=== PATIENT | female | born 1950 | race Caucasian/White ===

== ENCOUNTER 2018-03-13 18:16 | Inpatient (IN) | payer MEDICARE ==
[2018-03-13 19:06] LABS: Hemoglobin 13.8 g/dL (12.0-16.0); Mean Corpuscular HGB CONC 32.5 g/dL (32.0-36.0); Mean Corpuscular Hemoglobin 31.4 pg (27.0-31.0); Mean Corpuscular Volume 96.5 fL (78.0-98.0); Mean Platelet Volume 9.4 fL (7.4-10.4); Platelet Count 339 thou/uL (130-400); Red Blood Cell (RBC) Count 4.41 mill/uL (4.20-5.40); White Blood Cell (WBC) Count 12.1 thou/uL (4.8-10.8)
[2018-03-13] MEDS ORDERED: Promethazine HCl 25 MG/ML VIAL ONE (19:07)
[2018-03-13 19:20] LABS: ALT (SGPT) 10 U/L (8-55); AST (SGOT) 19 U/L (5-34); Albumin 3.9 g/dL (3.4-4.8); Alkaline Phosphatase 77 U/L (40-150); Anion Gap 13 mmol/L (10-20); BUN (Urea Nitrogen) 7 mg/dL (9.8-20.1); Bilirubin, Total 0.2 mg/dL (0.2-1.2); Calc. Creatinine Clearance 0 mL/min (70-130); Calcium 9.3 mg/dL (7.8-10.44); Carbon Dioxide 25 mmol/L (23-31); Chloride 103 mmol/L (98-107); Estimated GFR-MDRD 73; Globulin 3.2 g/dL (2.4-3.5); Glucose 179 mg/dL (80-115); Lipase 29 U/L (8-78); Potassium 4.1 mmol/L (3.5-5.1); Protein, Total 7.1 g/dL (6.0-8.3); Sodium 137 mmol/L (136-145)
[2018-03-13] MEDS ORDERED: Morphine 2 MG/ML SYRINGE ONE ×2 (19:20→22:18)
[2018-03-13 19:43] LABS: #Eosinphils 0.1 thou/uL (0.0-0.7); #Lymphocytes 1.6 thou/uL (1.20-3.40); #Monocytes 0.6 thou/uL (0.11-0.59); #Neutrophils 9.8 thou/uL (1.40-6.50); %Basophils 0.4 % (0.0-1.0); %Eosinophils 0.8 % (0.0-10.0); %Lymphocytes 13.3 % (21.0-51.0); %Monocytes 5.2 % (0.0-10.0); %Neutrophils 80.4 % (42.0-75.0); Anisocytosis SLIGHT = 6-15 cells (100X) (0-5/hpf); MDiff Complete? YES; PLT Morphology Comment Appears Adequate
[2018-03-13 20:10] LABS: Bilirubin Negative (Negative); Blood, Urine Negative (Negative); Clarity CLEAR (Clear); Glucose, Urine (Dipstick) Negative (Negative); Leukocyte Negative (Negative); Nitrite Negative (Negative); Protein, Urine (Dipstick) Negative (Neg-Trace); Specific Gravity, Urine 1.008 (1.002-1.036); Urobilinogen 0.2 mg/dL (0.2-1.0); pH, Urine 6.5 (5.0-9.0)
--- NOTE | 2018-03-13 21:05 | RAD ---
CHEST ONE VIEWS: 03/13/18 HISTORY: 67-year-old female with history of abdominal pain. COMPARISON: 12/06/17. FINDINGS: Stable increased markings noted bilaterally. Heart size is within normal limits. No confluent pneumon ia, no overt edema. No pleural effusion. IMPRESSION: Stable increased bronchovascular markings bilaterally. No evidence of pneumonia, acute edema, or othe r acute process. Atherosclerosis of the aorta. POS: [facility]
[2018-03-13] MEDS ORDERED: Ondansetron PF 4 MG/2 ML Vial IVP PRN (21:12)
[2018-03-13] MEDS ORDERED: Ondansetron ODT 4 MG TAB PO PRN (21:12)
[2018-03-13] MEDS ORDERED: Acetaminophen 325 MG TAB PO PRN (21:12)
[2018-03-13] MEDS ORDERED: Zolpidem Tartrate 5 MG TAB PO PRN (21:12)
[2018-03-13] MEDS ORDERED: Dextrose 50% Abboject 50 ML SYRINGE SLOW IVP PRN (21:18)
[2018-03-13] MEDS ORDERED: HumaLOG 300 UNITS/3 ML VIAL SC PRN ×2 (21:18)
[2018-03-13] MEDS ORDERED: Dextrose 5% in Water 1,000 ML IV PRN (21:18)
[2018-03-13] MEDS ORDERED: Piperacillin/Tazobactam 3.375 GM VIAL ONE (21:27)
[2018-03-13] MEDS: Vancomycin HCl 1 GM in Premix Bag 1 BAG IVPB SCH (23:47)
[2018-03-13 23:52] VITALS: BMI 29.7
[2018-03-14] MEDS: Sodium Chloride 0.9% 1,000 ML IV SCH ×3 (03:29→20:31)
[2018-03-14] MEDS: Piperacillin/Tazobactam 3.375 GM in Sodium Chloride 0.9% 100 ML IVPB SCH ×4 (03:30→21:04)
[2018-03-14] MEDS: HYDROcodone/Acetaminophen 7.5/325 mg Tablet PO PRN (03:30)
[2018-03-14 06:44] LABS: Anion Gap 12 mmol/L (10-20); BUN (Urea Nitrogen) 5 mg/dL (9.8-20.1); Calc. Creatinine Clearance 98 mL/min (70-130); Calcium 8.7 mg/dL (7.8-10.44); Carbon Dioxide 26 mmol/L (23-31); Chloride 109 mmol/L (98-107); Estimated GFR-MDRD Greater than 90; Glucose 87 mg/dL (80-115); Potassium 3.9 mmol/L (3.5-5.1); Sodium 143 mmol/L (136-145)
[2018-03-14 07:01] LABS: #Basophils 0.1 thou/uL (0.0-0.2); #Eosinphils 0.2 thou/uL (0.0-0.7); #Lymphocytes 3.5 thou/uL (1.20-3.40); #Monocytes 0.8 thou/uL (0.11-0.59); #Neutrophils 5.5 thou/uL (1.40-6.50); %Basophils 1.2 % (0.0-1.0); %Eosinophils 1.6 % (0.0-10.0); %Lymphocytes 34.6 % (21.0-51.0); %Monocytes 8.2 % (0.0-10.0); %Neutrophils 54.4 % (42.0-75.0); Anisocytosis SLIGHT = 6-15 cells (100X) (0-5/hpf); Hemoglobin 12.3 g/dL (12.0-16.0); MDiff Complete? YES; Mean Corpuscular HGB CONC 32.2 g/dL (32.0-36.0); Mean Corpuscular Hemoglobin 31.4 pg (27.0-31.0); Mean Corpuscular Volume 97.6 fL (78.0-98.0); Mean Platelet Volume 8.9 fL (7.4-10.4); Platelet Count 295 thou/uL (130-400); RBC Distribution Width 20.4 % (11.5-14.5); White Blood Cell (WBC) Count 10.1 thou/uL (4.8-10.8)
[2018-03-14] MEDS: Brinzolamide 1% Ophth Soln 10 ml Bottle EA EYE SCH ×3 (08:27→20:35)
[2018-03-14] MEDS: Timolol 0.5% Ophth Soln 5 ml Bottle EA EYE SCH ×3 (08:30→20:36)
[2018-03-14] MEDS: Latanoprost 0.005% Ophth Soln 2.5 ml Bottle EA EYE SCH ×3 (08:30→20:36)
[2018-03-14] MEDS: Brimonidine Tartrate 0.2% Ophth Soln 5 ml Bottle EA EYE SCH ×3 (08:31→20:37)
[2018-03-14] MEDS: predniSONE 5 MG TAB PO SCH (08:32)
[2018-03-14] MEDS: Famotidine 20 MG TAB PO SCH ×2 (08:34→20:31)
[2018-03-14] MEDS: Famotidine/PF 20 mg/2ml Vial SLOW IVP SCH ×2 (08:34→20:32)
[2018-03-14] MEDS: Enoxaparin Sodium 40 MG/0.4 ML SYRINGE SC SCH (08:37)
[2018-03-14] MEDS: HYDROcodone/Acetaminophen 10/325 mg Tablet PO PRN ×2 (08:45→15:32)
[2018-03-14] MEDS: Vancomycin HCl 1 GM in Premix Bag 1 BAG IVPB SCH (11:57)
--- NOTE | 2018-03-14 13:24 | CON ---
DATE OF CONSULTATION: GENERAL SURGERY CONSULTATION CHIEF COMPLAINT: Left upper quadrant abdominal pain. HISTORY: The patient is a 67-year-old female, underwent colonoscopy, polypectomy 6 days ago. Immediately post procedure, she complained of left upper quadrant abdominal pain that persisted. A CT scan was performed yesterday at the [facility] showing a small contained perforation at the splenic flexure. No fever or chills. PAST MEDICAL HISTORY: Hypertension, osteoarthritis, and diabetes. PAST SURGICAL HISTORY: She has had hysterectomy. She has had abdominal cystectomy, orthopedic surgery, laparoscopic cholecystectomy. MEDICATIONS: 1. Januvia. 2. Naprosyn. 3. She has been on prednisone, she is off that now. ALLERGIES: NO KNOWN DRUG ALLERGIES. SOCIAL HISTORY: She smokes about 1/2 pack of cigarettes per week. No alcohol. PHYSICAL EXAMINATION: VITAL SIGNS: Temperature 98.3, pulse 63, and blood pressure 127/71. GENERAL: She is awake and alert, does not appear to be in any distress. HEENT: Unremarkable. LUNGS: Clear. HEART: Regular rate and rhythm. ABDOMEN: Mildly tender in the left upper quadrant. No palpable masses. Nondistended. EXTREMITIES: Unremarkable. LABORATORY DATA: White count 10.1, hemoglobin and hematocrit 12 and 38, and platelet count 295. Electrolytes are fine. DIAGNOSTIC DATA: CT shows a small contained perforation, no free air, 2 x 1 cm at the splenic flexure. ASSESSMENT: Contained small perforation, too small per Radiology to drain. PLAN: IV antibiotics. Bowel rest. Tomorrow, she could probably start on clear liquids if doing well. Job ID: [id number]
--- NOTE | 2018-03-14 14:41 | HP ---
PRIMARY CARE PHYSICIAN: Dr. Jaime Frost. TIME OF SERVICE: 0930 hours. CHIEF COMPLAINT: Abdominal pain. HISTORY OF PRESENT ILLNESS: Ms. Walker is a 67-year-old female with a recent chronic history of iron-deficiency anemia. She had been referred for colonoscopy and underwent colonoscopy with Dr. Soto about six days ago. She had some left-sided abdominal pain postprocedure and they felt it was likely secondary to just insufflation of the colon and the pain continued through the weekend until two days ago. She went to go see her PCP, was scheduled for CAT scan, which was done on 03/13/2018, and the results of that showed a complex fluid collection and probable contained colonic perforation and she was sent to the ER last evening. The patient was seen and evaluated in the emergency department and worked up, we were subsequently called for admission. Surgery did see the patient this morning. The patient denies any fevers or chills. No nausea or vomiting. No diarrhea or constipation. Does have abdominal pain that seems to be centered in the left upper quadrant with bandlike radiation around to the back. She said it is markedly better today than yesterday and she did tolerate the antibiotics well. She has no other current complaints. PAST MEDICAL HISTORY: 1. Hypertension. 2. Chronic anemia. 3. Arthritis. 4. GERD. 5. Steroid-induced hyperglycemia. PAST SURGICAL HISTORY: 1. Cholecystectomy in December 2017. 2. Bilateral cataract extraction. 3. Hysterectomy. 4. Right knee surgery. 5. Exploratory laparotomy in 1978. HOME MEDICATIONS: 1. Hydrocodone/APAP 10/325 as needed. 2. Losartan 50 mg daily. 3. Prednisone 10 mg a day. 4. Naproxen as needed. 5. Combigan drops 0.2%/0.5%. 6. Latanoprost 0.005%. 7. Azopt 1%. 8. Januvia 100 mg daily. 9. Klonopin 1 mg p.o. b.i.d. 10. Omeprazole 20 mg daily. ALLERGIES: NKDA. FAMILY HISTORY: Negative for clotting or bleeding disorder. No immune dysfunction. SOCIAL HISTORY: Significant for cigarettes about 1/4 pack per week. No IV drug use. No alcohol. REVIEW OF SYSTEMS: All systems reviewed and negative except as stated in the HPI. PHYSICAL EXAMINATION: VITAL SIGNS: Temperature 98.3, pulse 65, blood pressure 127/71, respiratory rate 18, and saturating 92% on room air. GENERAL: She is awake. She is alert. She is oriented x3. Well-developed, well-nourished, older white female, appears age appropriate. She appears to be in no acute distress. HEENT: Normocephalic and atraumatic. Pupils are equal, round, and reactive to light bilaterally. Mucous membranes moist. No visible lesion. No thrush. NECK: Supple. There is no lymphadenopathy, JVD, or thyromegaly. Normal carotid upstroke. There are no bruits. LUNGS: Clear. No wheezes. No rales. No rhonchi. She has good air movement and symmetric chest excursion. No prolonged expiratory phase. CARDIOVASCULAR: . Normal S1 and S2. No S3 or S4. No murmurs. ABDOMEN: Soft. It is tender to left quadrant. There is no rebound, rigidity, or guarding. She has good bowel sounds in all 4 quadrants. EXTREMITIES: No cyanosis. No clubbing. No edema. SKIN: Warm, moist, and well perfused. She has no other rashes or lesions. MUSCULOSKELETAL: Normal to inspection. Large joints appear normal. There is no evidence of inflammation or palpable effusions. NEUROLOGIC: Cranial nerves 2 through 12 are grossly intact. She has no focal neurologic deficits. Normal speech pattern. LABORATORY DATA: Sodium 143, potassium 3.9, chloride 111, bicarbonate 26, BUN 5, creatinine 0.63, glucose of 83, and calcium of 8.7. CBC showed white count of 10.1, it was 12.1 on initial presentation in the ER; hemoglobin is 12.3; hematocrit of 35.6; and platelet count is 295,000 with a normal differential. IMAGING: CT [facility] of the abdomen and pelvis [facility] showed a complex fluid collection with air adjacent to the proximal descending colon abutting up against the anterior most edge of the spleen. ASSESSMENT AND PLAN: 1. Probable diverticular perforation during lower endoscopy, currently contained. Has a complex appearance. Certainly needs to be treated with antibiotics. She is currently on Zosyn, which will be continued now. We will transition her once she is eating reliably to Levaquin and Flagyl for long-term. I have talked to Dr. Packer, who has seen the patient this morning. There is no need for operative intervention at this time. I would recommend a 4-week course of p.o. antibiotics that are IV equivalent with repeat imaging at the 4-week jefe. We would stop the antibiotics once imaging is normal and would continue imaging every two weeks until it is normal. 2. Diverticulosis without diverticulitis. 3. Chronic iron-deficiency anemia. 4. Essential hypertension. 5. Steroid-induced hyperglycemia. We will continue home medications. The patient will be likely started on ice chips this afternoon and liquid diet tomorrow. We will continue to follow daily. Anticipate discharge in 2 to 3 days. Job ID: [id number]
[2018-03-15] MEDS: HYDROcodone/Acetaminophen 7.5/325 mg Tablet PO PRN
[2018-03-15] MEDS: Vancomycin HCl 1 GM in Premix Bag 1 BAG IVPB SCH ×2 (00:01→13:23)
[2018-03-15] MEDS: Piperacillin/Tazobactam 3.375 GM in Sodium Chloride 0.9% 100 ML IVPB SCH ×2 (04:58→10:30)
[2018-03-15] MEDS: HYDROcodone/Acetaminophen 10/325 mg Tablet PO PRN ×3 (08:46→21:01)
[2018-03-15] MEDS: Enoxaparin Sodium 40 MG/0.4 ML SYRINGE SC SCH (08:48)
[2018-03-15] MEDS: Famotidine 20 MG TAB PO SCH ×3 (08:49→20:40)
[2018-03-15] MEDS: predniSONE 5 MG TAB PO SCH (08:49)
[2018-03-15] MEDS: Famotidine/PF 20 mg/2ml Vial SLOW IVP SCH ×2 (08:49→20:38)
[2018-03-15] MEDS: Brinzolamide 1% Ophth Soln 10 ml Bottle EA EYE SCH ×3 (08:50→20:35)
[2018-03-15] MEDS: Timolol 0.5% Ophth Soln 5 ml Bottle EA EYE SCH ×3 (08:50→20:36)
[2018-03-15] MEDS: Brimonidine Tartrate 0.2% Ophth Soln 5 ml Bottle EA EYE SCH ×3 (08:51→20:36)
--- NOTE | 2018-03-15 10:26 | PRG ---
DATE OF SERVICE: 03/15/2018 SUBJECTIVE: The patient is stating that she is hungry. She wants some to eat. Bowels are working. Pain is no worse, minimally better. OBJECTIVE: VITAL SIGNS: Her temperature is 98.5, pulse is 61, blood pressure is 157/95. GENERAL: She looks good. She is wide awake, alert. ABDOMEN: Soft. Minimal tenderness. ASSESSMENT: Improved. PLAN: Clear liquid diet. Advance to low residue diet. Job ID: [id number]
[2018-03-15] MEDS ORDERED: Losartan 25 MG TAB PO SCH (11:00)
[2018-03-15 11:47] LABS: Vancomycin, Trough 13.7 ug/mL
[2018-03-15] MEDS: Ferrous Sulfate 325 MG TAB PO SCH ×2 (13:22→18:30)
[2018-03-15] MEDS: metroNIDAZOLE 500 MG in Premix Bag 1 BAG IVPB SCH ×2 (14:35→20:33)
[2018-03-15] MEDS: Sodium Chloride 0.9% 1,000 ML IV SCH (14:37)
[2018-03-15] MEDS: Latanoprost 0.005% Ophth Soln 2.5 ml Bottle EA EYE SCH (20:36)
[2018-03-15] MEDS ORDERED: clonazePAM 1 MG TAB PO SCH (21:00)
[2018-03-16] MEDS: Vancomycin HCl 1 GM in Premix Bag 1 BAG IVPB SCH ×2 (00:42→12:30)
[2018-03-16] MEDS: Sodium Chloride 0.9% 1,000 ML IV SCH ×2 (06:40→13:09)
[2018-03-16] MEDS: metroNIDAZOLE 500 MG in Premix Bag 1 BAG IVPB SCH (06:42)
[2018-03-16] MEDS: HYDROcodone/Acetaminophen 10/325 mg Tablet PO PRN ×2 (06:46→13:05)
[2018-03-16 06:58] LABS: Anion Gap 13 mmol/L (10-20); BUN (Urea Nitrogen) 4 mg/dL (9.8-20.1); Calc. Creatinine Clearance 106 mL/min (70-130); Calcium 8.8 mg/dL (7.8-10.44); Carbon Dioxide 25 mmol/L (23-31); Chloride 107 mmol/L (98-107); Estimated GFR-MDRD Greater than 90; Glucose 70 mg/dL (80-115); Potassium 3.7 mmol/L (3.5-5.1); Sodium 141 mmol/L (136-145)
[2018-03-16 07:40] LABS: #Basophils 0.1 thou/uL (0.0-0.2); #Eosinphils 0.3 thou/uL (0.0-0.7); #Lymphocytes 2.2 thou/uL (1.20-3.40); #Monocytes 0.7 thou/uL (0.11-0.59); #Neutrophils 5.1 thou/uL (1.40-6.50); %Basophils 1.3 % (0.0-1.0); %Eosinophils 4.1 % (0.0-10.0); %Lymphocytes 26.1 % (21.0-51.0); %Monocytes 8.5 % (0.0-10.0); Hemoglobin 13.2 g/dL (12.0-16.0); Mean Corpuscular HGB CONC 31.7 g/dL (32.0-36.0); Mean Corpuscular Hemoglobin 30.7 pg (27.0-31.0); Mean Corpuscular Volume 96.7 fL (78.0-98.0); Mean Platelet Volume 8.4 fL (7.4-10.4); Platelet Count 319 thou/uL (130-400); RBC Distribution Width 19.6 % (11.5-14.5); Red Blood Cell (RBC) Count 4.31 mill/uL (4.20-5.40); White Blood Cell (WBC) Count 8.5 thou/uL (4.8-10.8)
[2018-03-16] MEDS: Ferrous Sulfate 325 MG TAB PO SCH ×2 (08:31→13:03)
[2018-03-16] MEDS: Famotidine 20 MG TAB PO SCH (08:31)
[2018-03-16] MEDS: predniSONE 5 MG TAB PO SCH (08:32)
[2018-03-16] MEDS: Enoxaparin Sodium 40 MG/0.4 ML SYRINGE SC SCH (08:36)
[2018-03-16] MEDS: Brinzolamide 1% Ophth Soln 10 ml Bottle EA EYE SCH (08:40)
[2018-03-16] MEDS: Famotidine/PF 20 mg/2ml Vial SLOW IVP SCH (08:40)
[2018-03-16] MEDS: Timolol 0.5% Ophth Soln 5 ml Bottle EA EYE SCH (08:40)
[2018-03-16] MEDS: Brimonidine Tartrate 0.2% Ophth Soln 5 ml Bottle EA EYE SCH (08:41)
[2018-03-16] MEDS ORDERED: Losartan 25 MG TAB PO SCH (09:00)
[2018-03-16 09:08] LABS: PLT Morphology Comment Appears Adequate
--- NOTE | 2018-03-16 11:02 | PRG ---
DATE OF SERVICE: 03/16/2018 SUBJECTIVE: The patient says her pain is a lot better today. She is tolerating clear liquids well. She is hungry. Her bowels are functioning. OBJECTIVE: VITAL SIGNS: Temperature is 98.4, pulse 63, and blood pressure 150/75. GENERAL: She looks good. She really has no significant tenderness. LABORATORY DATA: Her white count is 8.5, H and H 13 and 41, and platelet count of 319. Electrolytes are fine. ASSESSMENT: Doing well. PLAN: Full liquid, advance as tolerated to low residue regular. She can be discharged on oral antibiotics and follow up in 2 weeks. Job ID: [id number]
[2018-03-16 11:44] VITALS: BP 149/88; TEMP 98.8
--- NOTE | 2018-03-19 12:19 | PQF ---
ELISEO STEVENS ERIC [id number] [id number]- [id number] CLINICAL DOCUMENTATION CLARIFICATION FORM: POST DISCHARGE Addendum to original discharge summary date: ____ Late entry note date: __ DATE: 03/19/18 ATTN: SARAI HERMAN Please exercise your independent, professional judgment in responding to the clarification form. Clinical indicators are provided on the bottom of this form for your review Please check appropriate box(s): [ ] DIVERTICULITIS with perforation - (Condition) is a complication of current /recent surgery [ ] DIVERTICULITIS with perforation- (Condition) is not a complication of current/recent surgery [ ] Other diagnosis [ ] Unable to determine In addition, please specify: Present on Admission (POA): [ ] Yes [ ] No [ ] Unable to determine CLINICAL INDICATORS - SIGNS / SYMPTOMS / LABS: 03/13 - CT / x-ray results - complex fluid collection and proable contained colonic perforation 03/13 H&P - Pain from site Probable diverticular perforation during lower endoscopy 03/15 Gastro consult - Contained small perforation RISK FACTORS: Recent surgery - S/P colonoscopy TREATMENT: 03/13 H&P - Antibiotic - Zosyn Clear liquid diet (This form is maintained as a part of the permanent medical record) 2014 [employer]. All Rights Reserved Yani Lowe, [place], [facility] [phone] [place]
== END 2018-03-16 13:25 | disposition home or self-care (01) | DRG 392 ==
LOC: ERS 18:16 → SURG A 21:00
PROVIDERS: ADMIT Internal Medicine; ATTEND Internal Medicine
DX: K57.20 Diverticulitis of large intestine with perforation and abscess without bleeding (principal); D50.9 Iron deficiency anemia, unspecified; I10 Essential (primary) hypertension; R73.9 Hyperglycemia, unspecified; T38.0X5A Adverse effect of glucocorticoids and synthetic analogues, initial encounter; M19.90 Unspecified osteoarthritis, unspecified site; E09.65 Drug or chemical induced diabetes mellitus with hyperglycemia; F17.210 Nicotine dependence, cigarettes, uncomplicated
CPT/HCPCS: 36415; 36416; 71045; 80048; 80053; 80202; 81003; 83690; 85025; 96365; 96367; 96375; 96376; J1650; J1956; J2270; J2543; J2550; J3370; J7050; S0028

== ENCOUNTER 2019-01-07 14:35 | Outpatient (CLI) | payer MEDICARE ==
--- NOTE | 2019-01-07 16:04 | BD ---
BONE DENSITOMETRY USING DEXA: Date: 01/07/19 HISTORY: Postmenopausal screening for osteoporosis. FINDINGS: Lumbar Spine: BMD (g/cm2) L1 0.717 T-Score: -2.5 Z-Score: -0.7 L2 0.860 T-Score: -1.5 Z-Score: 0.5 L3 0.839 T-Score: -2.2 Z-Score: -0.1 L4 0.924 T-Score: -1.2 Z-Score: 0.9 L1-L4 0.832 T-Score: -2.0 Z-Score: 0.1 Femoral Neck: 0.636 T-Score: -1.9 Z-Score: -0.2 Total Femur: 0.767 T-Score: -1.4 Z-Score: 0.0 The 10 year fracture risk for a major osteoporotic fracture is 12% and for a hip fracture is 3.1%. IMPRESSION: Osteopenia. POS: [facility]
== END 2019-01-07 14:36 | disposition home or self-care (01) ==
LOC: BICMAMMO 14:35
PROVIDERS: ATTEND Family Medicine
DX: Z13.820 Encounter for screening for osteoporosis (principal); M85.89 Other specified disorders of bone density and structure, multiple sites; Z78.0 Asymptomatic menopausal state
CPT/HCPCS: 77080

== ENCOUNTER 2019-09-20 13:22 | Outpatient (CLI) | payer MEDICARE ==
--- NOTE | 2019-09-20 15:35 | MRI ---
EXAM: RIGHT LOWER EXTREMITY MRI WITHOUT IV CONTRAST: 09/20/19 HISTORY: Deep groin pain, low back pain for one month. FINDINGS: Multiplanar and multisequence MRI examination of the pelvis and right hip is performed. There is a nondisplaced fracture involving the right ischiopubic ramus primarily involving the caudal portion as well as a nondisplaced fracture involving the right inferior pubic ramus. There are also fractures noted involving the left superior and left inferior pubic rami. There is some associated fa t stranding within adjacent musculature around the fracture sites but no evidence for hematoma or abn ormal fluid collection. Minimal generalized right hip joint space narrowing. Visualized hip labrum ap pears unremarkable. Mild common hamstring tendinopathy. Minimal generalized muscle loss of the gluteu s minimus and gluteus medius muscles. IMPRESSION: Nondisplaced fractures of the right superior ischial ramus and right inferior ischial pubic ramus as well as fractures of the left superior ischial ramus and the left inferior ischial pubic ramus. Mild right hip joint arthrosis. No evidence for other significant acute process. POS: [facility]
--- NOTE | 2019-09-20 15:42 | MRI ---
MRI OF THE LEFT HIP WITHOUT CONTRAST: INDICATION: History of left inguinal pain. COMPARISON: Left hip radiograph dated 08/08/2019. FINDINGS: There are nondisplaced bilateral obturator ring fractures, left greater than right. There is a subch ondral insufficiency fracture involving the left ileum, adjacent to the left SI joint. This is nondi splaced. There is mild tendinosis of the left gluteus minimus and medias tendons as well as mild ten dinosis of the left hamstring origin. The left rectus femoris origin is within normal limits. No tr ochanteric or iliopsoas bursitis is evident. There is mild degenerative arthrosis involving the left hip. No joint effusion is evident. IMPRESSION: 1. Nondisplaced bilateral obturator ring fractures 2. Small subchondral insufficiency fracture of the left ilium, adjacent to the left sacroiliac joint . 3. Mild left hip osteoarthrosis. 4. Mild tendinosis of the left gluteus minimus, and left gluteus medias tendon. Mild tendinosis of the left hamstring origin. POS: [facility]
== END 2019-09-20 13:23 | disposition home or self-care (01) ==
LOC: SCSMRI 13:22
PROVIDERS: ATTEND Nurse Practitioner Acute Care
DX: R10.30 Lower abdominal pain, unspecified (principal); M16.12 Unilateral primary osteoarthritis, left hip; M84.454A Pathological fracture, pelvis, initial encounter for fracture; M67.854 Other specified disorders of tendon, left hip; S32.591A Other specified fracture of right pubis, initial encounter for closed fracture; M16.11 Unilateral primary osteoarthritis, right hip

== ENCOUNTER 2019-10-15 10:34 | Outpatient (CLI) | payer MEDICARE ==
--- NOTE | 2019-10-15 11:02 | RAD ---
EXAM: 3 views of the thoracic spine HISTORY: Thoracic spine pain COMPARISON: None FINDINGS: 3 views of the thoracic spine shows normal height and alignment of the vertebral bodies and intervertebral discs without fracture or subluxation. Mild diffuse degenerative changes are seen. IMPRESSION: No evidence of acute thoracic spine abnormality.
== END 2019-10-15 10:35 | disposition home or self-care (01) ==
LOC: BICRAD 10:34
PROVIDERS: ATTEND Internal Medicine Rheumatology
DX: M81.0 Age-related osteoporosis without current pathological fracture (principal)
CPT/HCPCS: 72070

== ENCOUNTER 2022-05-05 08:48 | Day surgery (SDC) | payer MEDICARE, MEDICAID ==
[2022-05-04 11:53] VITALS: BMI 29.5
[~2022-05-05 08:48] MED LIST: Fluorouracil 100 MG, Enoxaparin 25 MG, EPINEPHrine 0.3 MG in Ophthalmic Irrigation Solu... IRR SCH; Midazolam HCl 2 mg/2 ml Vial ONE; fentaNYL PF 100 MCG/2 ML SYRINGE ONE
[2022-05-05] MEDS ORDERED: Phenylephrine 2.5% Ophth Soln 5 ML BOT ONE (09:13)
[2022-05-05] MEDS ORDERED: Cyclopentolate 1% Opth Drop 2 ML BOT ONE (09:13)
[2022-05-05] MEDS ORDERED: Famotidine/PF 20 mg/2ml Vial ONE (11:25)
[2022-05-05] MEDS ORDERED: Maxitrol 0.1% Opth Oint 3.5 GM TUBE ONE (11:31)
[2022-05-05] MEDS ORDERED: Metoclopramide HCl 10 MG/2 ML VIAL ONE (11:31)
[2022-05-05] MEDS ORDERED: Ondansetron PF 4 MG/2 ML Vial ONE (11:31)
[2022-05-05] MEDS ORDERED: Bupivacaine 0.75% 10 ML VIAL ONE (11:31)
[2022-05-05] MEDS ORDERED: Lidocaine 1% PF 5 ML VIAL ONE (11:31)
[2022-05-05] MEDS ORDERED: CEFAZOLIN 1 GM VIAL ONE (11:31)
[2022-05-05] MEDS ORDERED: Metoprolol Tartrate 5 MG/5 ML VIAL ONE ×2 (11:31→13:03)
[2022-05-05] MEDS ORDERED: PROPOFOL 200 MG/20 ML VIAL ONE (11:31)
[2022-05-05] MEDS ORDERED: Lidocaine 4% PF 5 ML AMP ONE (11:31)
[2022-05-05] MEDS ORDERED: Triamcinolone 40 MG/ML VIAL ONE (11:31)
[2022-05-05] MEDS ORDERED: Fentanyl 100 MCG/2 ML VIAL ONE ×2 (13:21→14:21)
[2022-05-05] MEDS ORDERED: hydrALAZINE 20 MG/ML VIAL ONE (14:00)
[2022-05-05] MEDS ORDERED: HYDROcodone/Acetaminophen 5/325 mg Tablet ONE (15:17)
== END 2022-05-05 15:37 | disposition home or self-care (01) ==
LOC: SDC 08:48
PROVIDERS: ATTEND Ophthalmology Retina Specialist
PROC: 08T43ZZ Resection of Right Vitreous, Percutaneous Approach (ICD-10-PCS; principal; 2022-05-05)
PROC: 08QE3ZZ Repair Right Retina, Percutaneous Approach (ICD-10-PCS; 2022-05-05)
DX: H33.011 Retinal detachment with single break, right eye (principal); H31.8 Other specified disorders of choroid; Z79.899 Other long term (current) drug therapy; Z98.41 Cataract extraction status, right eye; Z98.42 Cataract extraction status, left eye; Z96.1 Presence of intraocular lens
CPT/HCPCS: 67025; 67108; J0360; J0171; J0690; J1650; J2250; J2405; J2704; J2765; J3010; J3301; J3490; J9190; S0028

== ENCOUNTER 2023-02-16 07:35 | Day surgery (SDC) | payer OTHER, MEDICAID ==
[2023-02-15 11:28] VITALS: BMI 29.6
[~2023-02-16 07:35] MED LIST changes: +EPINEPHrine 0.3 MG in Ophthalmic Irrigation Solution 500 ML IRR SCH; -Fluorouracil 100 MG, Enoxaparin 25 MG, EPINEPHrine 0.3 MG in Ophthalmic Irrigation Solu... IRR SCH; -Midazolam HCl 2 mg/2 ml Vial ONE; -fentaNYL PF 100 MCG/2 ML SYRINGE ONE
[2023-02-16] MEDS ORDERED: PHENYLephrine 2.5% Ophth Soln 15 ml Bottle ONE (07:58)
[2023-02-16] MEDS ORDERED: Cyclopentolate 1% Opth Drop 2 ML BOT ONE (07:59)
[2023-02-16] MEDS ORDERED: Lidocaine 1% PF 5 ML VIAL ONE ×2 (08:55→09:03)
[2023-02-16] MEDS ORDERED: PROPOFOL 200 MG/20 ML VIAL ONE (09:03)
[2023-02-16] MEDS ORDERED: Maxitrol 0.1% Opth Oint 3.5 GM TUBE ONE (09:03)
[2023-02-16] MEDS ORDERED: CEFAZOLIN 1 GM VIAL ONE (09:03)
[2023-02-16] MEDS ORDERED: Lidocaine 4% PF 5 ML AMP ONE (09:03)
[2023-02-16] MEDS ORDERED: Triamcinolone 40 MG/ML VIAL ONE (09:03)
[2023-02-16] MEDS ORDERED: Bupivacaine 0.75% 10 ML VIAL ONE (09:03)
[2023-02-16] MEDS ORDERED: fentaNYL 50 mcg/mL 1 mL Vial ONE (09:27)
== END 2023-02-16 10:38 | disposition home or self-care (01) ==
LOC: SDC 07:35
PROVIDERS: ATTEND Ophthalmology Retina Specialist
PROC: 08123J4 Bypass Right Anterior Chamber to Sclera with Synthetic Substitute, Percutaneous Approach (ICD-10-PCS; principal; 2023-02-16)
DX: H40.1114 Primary open-angle glaucoma, right eye, indeterminate stage (principal)
CPT/HCPCS: 66180; C1762; J3010; J0171; J0690; J2704; J3301; J3490; L8612

== ENCOUNTER 2023-04-20 05:58 | Day surgery (SDC) | payer OTHER, MEDICAID ==
[2023-04-19 11:03] VITALS: BMI 30.2
[2023-04-20] MEDS ORDERED: PHENYLephrine 2.5% Ophth Soln 15 ml Bottle ONE (06:24)
[2023-04-20] MEDS ORDERED: Cyclopentolate 1% Opth Drop 2 ML BOT ONE (06:24)
[2023-04-20] MEDS ORDERED: fentaNYL 50 mcg/mL 1 mL Vial ONE ×3 (06:34→10:16)
[2023-04-20] MEDS ORDERED: Lidocaine 1% PF 5 ML VIAL ONE ×2 (06:34→08:20)
[2023-04-20] MEDS ORDERED: PROPOFOL 20 ML ONE (06:34)
[2023-04-20] MEDS ORDERED: Vancomycin 100 MG, Sodium Chloride 0.9% 10 ML TOP SCH (07:00)
[2023-04-20] MEDS ORDERED: CEFTAZIDIME FORTAZ IVPB SCH (07:00)
[2023-04-20] MEDS ORDERED: EPINEPHrine 0.3 MG in Ophthalmic Irrigation Solution 500 ML IRR SCH (07:00)
[2023-04-20] MEDS ORDERED: SODIUM CHLORIDE 0.9% IVPB SCH (07:00)
[2023-04-20] MEDS ORDERED: Lidocaine 1% MPF 2 ML VIAL ONE (07:09)
[2023-04-20] MEDS ORDERED: Dexamethasone 20 MG/5 ML VIAL ONE (08:19)
[2023-04-20] MEDS ORDERED: Triamcinolone 40 MG/ML VIAL ONE (08:20)
[2023-04-20] MEDS ORDERED: Maxitrol 0.1% Opth Oint 3.5 GM TUBE ONE (08:20)
[2023-04-20] MEDS ORDERED: Lidocaine 4% PF 5 ML AMP ONE (08:20)
[2023-04-20] MEDS ORDERED: PHENYLEPHRINE-NS 100 MCG/ML 10 ML SYRINGE ONE (08:20)
[2023-04-20] MEDS ORDERED: CEFAZOLIN 1 GM VIAL ONE (08:20)
[2023-04-20] MEDS ORDERED: Bupivacaine 0.75% 10 ML VIAL ONE (08:20)
[2023-04-20] MEDS ORDERED: Ondansetron PF 4 MG/2 ML Vial ONE (08:20)
[2023-04-20] MEDS ORDERED: ePHEDrine Sulfate 50 MG/10 ML VIAL ONE (08:34)
== END 2023-04-20 11:33 | disposition home or self-care (01) ==
LOC: SDC 05:58
PROVIDERS: ATTEND Ophthalmology Retina Specialist
PROC: 08W Eye, Revision (ICD-10-PCS; principal; 2023-04-20)
DX: T85.398A Other mechanical complication of other ocular prosthetic devices, implants and grafts, initial encounter (principal); H40.2213 Chronic angle-closure glaucoma, right eye, severe stage; Y83.0 Surgical operation with transplant of whole organ as the cause of abnormal reaction of the patient, or of later complication, without mention of misadventure at the time of the procedure
CPT/HCPCS: 66185; J3010; C1762; J0171; J0690; J0713; J1100; J2405; J2704; J3301; J3371; J3490